=== PATIENT | male | born 1955 ===

== ENCOUNTER 2020-06-16 05:33 | Inpatient (IN) ==
[2020-06-16] MEDS ORDERED: Lactated Ringers 1000 ml BAG 1,000 ML IV SCH (06:00)
[2020-06-16] MEDS ORDERED: Buffered Lidocaine 1% SYRIN 1 ml INTRADERM ONE ×2 (06:00→06:10)
[2020-06-16] MEDS ORDERED: Lidocaine 1% w EPI 1:200,000 SDV 30 ML VIAL ONE (06:37)
[2020-06-16] MEDS ORDERED: Bupivacaine 0.25% SDV 30 ML ONE (06:37)
[2020-06-16] MEDS ORDERED: Bacitracin INJECTION 50,000 UNITS ONE ×2 (06:38→11:50)
[2020-06-16] MEDS ORDERED: VANCOMYCIN 1500 MG X 1 DOSE IVPB ONE (07:00)
[2020-06-16] MEDS ORDERED: Propofol 1,000 MG/100 ML BTL ONE (07:03)
[2020-06-16] MEDS ORDERED: fentaNYL 250 mcg/5 ml 50 MCG/ML 5 ml VIAL (250 MCG) ONE (07:09)
[2020-06-16] MEDS ORDERED: Rocuronium 50 mg VIAL 10 mg/ml 5 ml VIAL (50 mg) ONE (07:16)
[2020-06-16] MEDS ORDERED: Propofol 10 MG/ML 20 ML BTL ONE (07:16)
[2020-06-16] MEDS ORDERED: Lidocaine 2% PF 5 ML VIAL ONE (07:20)
[2020-06-16] MEDS ORDERED: Midazolam 5 mg/5 ml VIAL 1 mg/ml 5 ml VIAL (5 mg) ONE (07:20)
[2020-06-16] MEDS ORDERED: Propofol 10 mg/ml 100 ML BTL 200 ML ONE (09:32)
[2020-06-16] MEDS ORDERED: fentaNYL 100 mcg/2 ml 50 MCG/ML VIAL IV PRN (10:34)
[2020-06-16] MEDS ORDERED: Phenylephrine IV 10 MG/ML 1 ml VIAL ONE (10:34)
[2020-06-16] MEDS ORDERED: Phenylephrine 40 mcg/mL 10mL (400mcg) SYRINGE ONE (10:34)
[2020-06-16] MEDS ORDERED: Ondansetron 4 mg VIAL 2 MG/ML 2 ml VIAL IV PRN ×2 (10:34→15:24)
[2020-06-16] MEDS ORDERED: Naloxone 0.4 mg VIAL 0.4 mg/ml 1 ml VIAL IV PRN (10:34)
[2020-06-16] MEDS ORDERED: oxyCODONE/Acetamin 5/325 mg TAB PO PRN (10:34)
[2020-06-16] MEDS ORDERED: fentaNYL 100 mcg/2 ml 50 MCG/ML VIAL ONE (12:56)
[2020-06-16] MEDS ORDERED: Magnesium Hydroxide LIQ 30 ML UDC PO PRN (15:24)
[2020-06-16] MEDS ORDERED: HYDROcodone/ACETAMIN 5/325 mg TAB PO PRN ×2 (15:24)
[2020-06-16] MEDS ORDERED: Flumazenil 0.5 mg/5 ml 0.1 MG/ML 5 ml VIAL ONE (15:29)
[2020-06-17] MEDS ORDERED: Nicotine PATCH 14 MG/24 HR PATCH TRANSDERM SCH (09:00)
[2020-06-17 12:21] VITALS: BP 107/56
== END 2020-06-17 15:30 | disposition home or self-care (01) | DRG 454 ==
LOC: AA 05:33 → SSU 15:24
PROVIDERS: ADMIT Neurological Surgery; ATTEND Neurological Surgery